=== PATIENT | female | born 1990 | race Asian ===

== ENCOUNTER 2021-12-26 21:31 | Inpatient (IN) | payer MEDICAID, OTHER ==
[~2021-12-26] VITALS: Ht 144.8 cm; Wt 81.6 kg
[~2021-12-26 21:31] MED LIST: CLON1TAB12 PO; RISP1TAB48 PO; RISP1TAB98 PO; RISP2TAB45 PO; SERT50TA PO
[2021-12-26] MEDS ORDERED: CARI4.5C PO (22:24)
[2021-12-26] MEDS ORDERED: LORA10TA7 PO (22:24)
[2021-12-26] MEDS ORDERED: FENO54TA7 PO (22:24)
[2021-12-26] MEDS ORDERED: ALBU8.5H8 IH (22:24)
[2021-12-26] MEDS ORDERED: BENZ1TAB96 PO (22:24)
[2021-12-26] MEDS ORDERED: CETI-450 PO (22:24)
[2021-12-26] MEDS ORDERED: CHOL25TA4 PO (22:24)
[2021-12-26] MEDS ORDERED: LORazepam 2 MG/ML VIAL IM ONE (22:30)
[2021-12-26] MEDS ORDERED: HALOPERIDOL LACTATE 5 MG/ML VIAL IM ONE (22:30)
[2021-12-26] MEDS ORDERED: DiphenhydrAMINE HCL 50 MG/ML VIAL IM ONE (22:30)
[2021-12-26] MEDS ORDERED: HALOPERIDOL LACTATE 5 MG/ML VIAL ONE (22:31)
[2021-12-26] MEDS ORDERED: DiphenhydrAMINE HCL 50 MG/ML VIAL ONE (22:31)
[2021-12-26] MEDS ORDERED: LORazepam 2 MG/ML VIAL ONE (22:31)
[2021-12-26 23:08] LABS: BASOPHILS % (AUTO) 0.4 % (0.0-2.0); EOSINOPHILS % (AUTO) 0.4 % (1.0-6.0); HEMATOCRIT 42.4 % (36-46); HEMOGLOBIN 13.7 g/dL (12.0-16.0); LYMPHOCYTES # (AUTO) 1.1 K/uL (1.0-4.8); LYMPHOCYTES % (AUTO) 4.9 % (22.0-44.0); MEAN CORPUSCULAR HEMOGLOBIN 28.7 pg (26.0-34.0); MEAN CORPUSCULAR HGB CONC 32.2 G/dL (31.0-37.0); MEAN CORPUSCULAR VOLUME 89 fL (80-100); MONOCYTES # (AUTO) 1.2 K/uL (0.1-1.0); MONOCYTES % (AUTO) 5.4 % (2.0-9.0); NEUTROPHILS # (AUTO) 20.2 K/uL (1.8-7.7); NEUTROPHILS % (AUTO) 88.9 % (40.0-70.0); PLATELET COUNT (AUTO) 536 K/uL (150-450); RED BLOOD CELL COUNT(AUTO) 4.76 MIL/uL (4.00-5.20); RED CELL DISTRIBUTION WIDTH 13.7 % (11.5-14.5)
[2021-12-26 23:29] LABS: ALANINE AMINOTRANSFERASE 25 U/L (12-78); ALKALINE PHOSPHATASE 112 U/L (46-116); ANION GAP 29 mmol/L (8-16); ASPARTATE AMINOTRANSFERASE 22 U/L (15-37); BILIRUBIN,TOTAL 0.2 mg/dL (0.1-1.0); CALCIUM, TOTAL 9.2 mg/dL (8.8-10.5); CARBON DIOXIDE 10 mmol/L (22-29); CHLORIDE 103 mmol/L (98-107); GLOMERULAR FILTR. RATE CALC 33 mL/min (>60); GLUCOSE,RANDOM 279 mg/dL (70-110); HCG,QUANTITATIVE < 1 mIU/mL (0-6); POTASSIUM 3.6 mmol/L (3.5-5.1); SODIUM SERUM 142 mmol/L (136-145); TOTAL PROTEIN, SERUM 8.2 g/dL (6.4-8.2); UREA NITROGEN, BLOOD 9 mg/dL (7-18)
[2021-12-26 23:48] LABS: COVID AG,FIA SOURCE NASAL SWAB
[2021-12-27] MEDS ORDERED: LORazepam 2 MG TABLET PO PRN (00:15)
[2021-12-27] MEDS ORDERED: HALOPERIDOL 5 MG TABLET PO PRN (00:15)
[2021-12-27] MEDS ORDERED: ZOLPIDEM TARTRATE 10 MG TABLET PO PRN (00:15)
[2021-12-27 03:06] VITALS: BP 113/72
[2021-12-27] MEDS ORDERED: ALBUTEROL SULFATE HFA 90 MCG/PUFF 8 GM INHALER IH PRN (06:45)
[2021-12-27] MEDS ORDERED: GuaiFENesin/D-METHORPHAN [SUGAR-FREE] 200-20MG/10 ML SYRUP UDCUP PO PRN (06:45)
[2021-12-27] MEDS ORDERED: DOCUSATE SODIUM 100 MG CAPSULE PO PRN (06:45)
[2021-12-27] MEDS ORDERED: LOPERAMIDE HCL 2 MG CAPSULE PO PRN (06:45)
[2021-12-27] MEDS ORDERED: MAG HYDROX/AL HYDROX/SIMETH ES 30 ML SUSPENSION UDCUP PO PRN (06:45)
[2021-12-27] MEDS ORDERED: CloNIDine HCL 0.1 MG TABLET PO PRN (06:45)
[2021-12-27] MEDS ORDERED: ONDANSETRON HCL 4 MG TABLET PO PRN (06:45)
[2021-12-27] MEDS ORDERED: IBUPROFEN 400 MG TABLET PO PRN (06:45)
[2021-12-27] MEDS ORDERED: PETROLATUM,WHITE 28 GM JELLY TP PRN (06:45)
[2021-12-27] MEDS ORDERED: MAGNESIUM HYDROXIDE SUSPENSION 30 ML UDCUP PO PRN (06:45)
[2021-12-27] MEDS ORDERED: NICOTINE 14 MG/24 HOUR PATCH TD PRN (06:45)
[2021-12-27] MEDS ORDERED: ACETAMINOPHEN 325 MG TABLET PO PRN (06:45)
[2021-12-27 08:12] VITALS: BP 122/74
[2021-12-27] MEDS: CHOLECALCIFEROL (VIT D3) 1,000 UNITS [25 MCG] TABLET PO SCH ×2 (08:20→16:50)
[2021-12-27] MEDS ORDERED: SERT-440 PO (09:17)
[2021-12-27] MEDS: PALIPERIDONE 1.5 MG ER TABLET PO SCH (09:50)
[2021-12-27] MEDS: SERTRALINE HCL 100 MG TABLET PO SCH (09:50)
[2021-12-27] MEDS: BENZTROPINE MESYLATE 1 MG TABLET PO SCH ×2 (09:50→16:50)
[2021-12-27] MEDS: FENOFIBRATE 54 MG TABLET PO SCH (13:21)
[2021-12-27 13:35] LABS: APPEARANCE,URINE TURBID (CLEAR); BILIRUBIN,URINE NEGATIVE (NEGATIVE); GLUCOSE, URINE (UA) TRACE mg/dL (NEGATIVE); KETONES,URINE NEGATIVE (NEGATIVE); LEUKOCYTE ESTERASE ,URINE TRACE (NEGATIVE); NITRATE,URINE NEGATIVE (NEGATIVE); OCCULT BLOOD,URINE TRACE (NEGATIVE); PROTEIN,URINE TRACE mg/dL (NEGATIVE); SPECIFIC GRAVITIY, URINE 1.013 (1.003-1.030); UROBILINOGEN,URINE <=1.0 mg/dL (<=1.0)
[2021-12-27 13:43] LABS: AMPHET/METH SCREEN,URINE NEGATIVE (NEGATIVE); BARBITURATE SCREEN, URINE NEGATIVE (NEGATIVE); BENZODIAZEPINES SCREEN,URINE NEGATIVE (NEGATIVE); CANNABINOID SCREEN,URINE NEGATIVE (NEGATIVE); COCAINE SCREEN,URINE NEGATIVE (NEGATIVE); METHADONE SCREEN, URINE NEGATIVE (NEGATIVE); OPIATE SCREEN,URINE NEGATIVE (NEGATIVE)
[2021-12-27 13:44] LABS: PHENCYCLIDINE SCREEN,URINE NEGATIVE (NEGATIVE)
[2021-12-27 16:15] VITALS: BP 103/65
[2021-12-27 18:01] LABS: RBC,URINE 0-2 /HPF (0-2)
[2021-12-27 18:02] LABS: BACTERIA,URINE Few /HPF (None Seen)
[2021-12-27] MEDS: CETIRIZINE HCL 10 MG TABLET PO SCH (20:10)
[2021-12-28 01:06] VITALS: BP 100/66
[2021-12-28 07:15] LABS: BASOPHILS % (AUTO) 0.6 % (0.0-2.0); EOSINOPHILS % (AUTO) 1.9 % (1.0-6.0); HEMATOCRIT 36.9 % (36-46); HEMOGLOBIN 12.5 g/dL (12.0-16.0); LYMPHOCYTES # (AUTO) 1.5 K/uL (1.0-4.8); LYMPHOCYTES % (AUTO) 14.3 % (22.0-44.0); MEAN CORPUSCULAR HEMOGLOBIN 29.3 pg (26.0-34.0); MEAN CORPUSCULAR HGB CONC 33.8 G/dL (31.0-37.0); MEAN CORPUSCULAR VOLUME 87 fL (80-100); MONOCYTES % (AUTO) 9.8 % (2.0-9.0); NEUTROPHILS # (AUTO) 7.8 K/uL (1.8-7.7); NEUTROPHILS % (AUTO) 73.4 % (40.0-70.0); PLATELET COUNT (AUTO) 389 K/uL (150-450); RED BLOOD CELL COUNT(AUTO) 4.25 MIL/uL (4.00-5.20); RED CELL DISTRIBUTION WIDTH 13.5 % (11.5-14.5)
[2021-12-28 07:50] LABS: ANION GAP 9 mmol/L (8-16); CALCIUM, TOTAL 9.1 mg/dL (8.8-10.5); CARBON DIOXIDE 27 mmol/L (22-29); CHLORIDE 106 mmol/L (98-107); CHOL/HDL RATIO 3.8 (3.9-5.7); CHOLESTEROL 147 mg/dL (131-200); CREATININE 0.83 mg/dL (0.60-1.30); FREE T4 (FREE THYROXINE) 1.07 ng/dL (0.76-1.46); GLOMERULAR FILTR. RATE CALC > 60 mL/min (>60); GLUCOSE,RANDOM 107 mg/dL (70-110); HDL CHOLESTEROL 39 mg/dL (40-60); LDL CHOL (CALC.) 84 mg/dL (0-130); POTASSIUM 3.6 mmol/L (3.5-5.1); SODIUM SERUM 142 mmol/L (136-145); THYROID STIMULATING HORMONE 0.55 uIU/mL (0.36-3.74); TRIGLYCERIDES 122 mg/dL (15-150); UREA NITROGEN, BLOOD 15 mg/dL (7-18)
[2021-12-28 08:01] VITALS: BP 108/74
[2021-12-28] MEDS: BENZTROPINE MESYLATE 1 MG TABLET PO SCH ×2 (08:16→16:59)
[2021-12-28] MEDS: SERTRALINE HCL 100 MG TABLET PO SCH (08:16)
[2021-12-28] MEDS: FENOFIBRATE 54 MG TABLET PO SCH (08:16)
[2021-12-28] MEDS: PALIPERIDONE 1.5 MG ER TABLET PO SCH (08:17)
[2021-12-28] MEDS: CHOLECALCIFEROL (VIT D3) 1,000 UNITS [25 MCG] TABLET PO SCH ×2 (08:22→16:59)
[2021-12-28 16:37] VITALS: BP 103/60
[2021-12-28] MEDS: CETIRIZINE HCL 10 MG TABLET PO SCH (20:02)
[2021-12-29 01:10] VITALS: BP 106/72
[2021-12-29 08:04] VITALS: BP 112/69
[2021-12-29] MEDS: PALIPERIDONE 1.5 MG ER TABLET PO SCH (08:14)
[2021-12-29] MEDS: FENOFIBRATE 54 MG TABLET PO SCH (08:14)
[2021-12-29] MEDS: CHOLECALCIFEROL (VIT D3) 1,000 UNITS [25 MCG] TABLET PO SCH ×2 (08:14→16:09)
[2021-12-29] MEDS: BENZTROPINE MESYLATE 1 MG TABLET PO SCH ×2 (08:14→16:09)
[2021-12-29] MEDS: SERTRALINE HCL 100 MG TABLET PO SCH (08:14)
[2021-12-29 16:12] VITALS: BP 113/70
[2021-12-29] MEDS: CETIRIZINE HCL 10 MG TABLET PO SCH (20:17)
[2021-12-30 05:47] VITALS: BP 104/60
[2021-12-30] MEDS ORDERED: SERT-440 PO (06:42)
[2021-12-30] MEDS ORDERED: CHOL25TA4 PO (06:42)
[2021-12-30] MEDS ORDERED: CARI4.5C PO (06:42)
[2021-12-30] MEDS ORDERED: BENZ1TAB96 PO (06:42)
[2021-12-30] MEDS ORDERED: FENO54TA7 PO (06:42)
[2021-12-30] MEDS ORDERED: CETI-450 PO (06:42)
[2021-12-30] MEDS: FENOFIBRATE 54 MG TABLET PO SCH (07:56)
[2021-12-30] MEDS: PALIPERIDONE 1.5 MG ER TABLET PO SCH (07:56)
[2021-12-30] MEDS: SERTRALINE HCL 100 MG TABLET PO SCH (07:56)
[2021-12-30] MEDS: CHOLECALCIFEROL (VIT D3) 1,000 UNITS [25 MCG] TABLET PO SCH (07:57)
[2021-12-30] MEDS: BENZTROPINE MESYLATE 1 MG TABLET PO SCH (07:57)
[2021-12-30 08:10] VITALS: BP 100/62
== END 2021-12-30 10:45 | disposition home or self-care (01) | DRG 750 ==
LOC: EMS 21:35 → B3A 12-27 00:14
PROVIDERS: ADMIT Psychiatry & Neurology Psychiatry; ATTEND Psychiatry & Neurology Psychiatry
DX: F25.0 Schizoaffective disorder, bipolar type (principal); N17.9 Acute kidney failure, unspecified; F79 Unspecified intellectual disabilities; D72.829 Elevated white blood cell count, unspecified; D75.839 Thrombocytosis, unspecified; J44.9 Chronic obstructive pulmonary disease, unspecified; Z20.822 Contact with and (suspected) exposure to COVID-19
CPT/HCPCS: 80048; 80053; 80061; 81001; 84439; 84443; 84702; 85025; 87081; 99285; G0480; J1200; J1630; J2060

== ENCOUNTER 2023-07-04 10:11 | Inpatient (IN) | payer MEDICAID, OTHER ==
[~2023-07-04] VITALS: Ht 144.8 cm; Wt 59.0 kg
[~2023-07-04 10:11] MED LIST changes: +ALBU8.5H8 IH; +BENZ1TAB84 PO; +CARI4.5C PO; +CETI-450 PO; +CHOL25TA4 PO; -CLON1TAB12 PO; +FENO54TA7 PO; -RISP1TAB48 PO; -RISP1TAB98 PO; -RISP2TAB45 PO; +SERT-440 PO; -SERT50TA PO
[2023-07-04] MEDS ORDERED: DiphenhydrAMINE HCL 50 MG/ML VIAL ONE (10:27)
[2023-07-04] MEDS ORDERED: HALOPERIDOL LACTATE 5 MG/ML VIAL ONE (10:27)
[2023-07-04] MEDS ORDERED: LORazepam 2 MG/ML VIAL ONE (10:27)
[2023-07-04] MEDS ORDERED: DiphenhydrAMINE HCL 50 MG/ML VIAL IM ONE (10:30)
[2023-07-04] MEDS ORDERED: LORazepam 2 MG/ML VIAL IM ONE (10:30)
[2023-07-04] MEDS ORDERED: HALOPERIDOL LACTATE 5 MG/ML VIAL IM ONE (10:30)
[2023-07-04] MEDS ORDERED: CHOL25TA4 PO (10:59)
[2023-07-04] MEDS ORDERED: PIME30CR6 TP (10:59)
[2023-07-04] MEDS ORDERED: BECL10.6 IH (10:59)
[2023-07-04] MEDS ORDERED: MONT-40 PO (10:59)
[2023-07-04] MEDS ORDERED: TRIA15CR49 TP (10:59)
[2023-07-04] MEDS ORDERED: ALBU18HF12 IH (10:59)
[2023-07-04] MEDS ORDERED: TRAL150S SQ (10:59)
[2023-07-04 11:56] LABS: BASOPHILS % (AUTO) 0.3 % (0.0-2.0); EOSINOPHILS % (AUTO) 0 % (1.0-6.0); HEMATOCRIT 36.9 % (36-46); HEMOGLOBIN 12.4 g/dL (12.0-16.0); LYMPHOCYTES # (AUTO) 0.7 K/uL (1.0-4.8); LYMPHOCYTES % (AUTO) 4.7 % (22.0-44.0); MEAN CORPUSCULAR HEMOGLOBIN 29.3 pg (26.0-34.0); MEAN CORPUSCULAR HGB CONC 33.6 G/dL (31.0-37.0); MEAN CORPUSCULAR VOLUME 87 fL (80-100); MONOCYTES # (AUTO) 0.8 K/uL (0.1-1.0); MONOCYTES % (AUTO) 5.3 % (2.0-9.0); NEUTROPHILS # (AUTO) 12.8 K/uL (1.8-7.7); PLATELET COUNT (AUTO) 509 K/uL (150-450); RED BLOOD CELL COUNT(AUTO) 4.23 MIL/uL (4.00-5.20); RED CELL DISTRIBUTION WIDTH 13.3 % (11.5-14.5); WHITE BLOOD COUNT (AUTO) 14.3 K/uL (4.5-11.0)
[2023-07-04 11:58] LABS: NEUTROPHILS % (AUTO) 89.7 % (40.0-70.0)
[2023-07-04 12:04] LABS: ANION GAP 17 mmol/L (8-16); CALCIUM, TOTAL 9.1 mg/dL (8.8-10.5); CARBON DIOXIDE 18 mmol/L (22-29); CHLORIDE 103 mmol/L (98-107); CREATININE 1.35 mg/dL (0.60-1.30); GLOMERULAR FILTR. RATE CALC 45 mL/min (>60); GLUCOSE,RANDOM 206 mg/dL (70-110); POTASSIUM 3.7 mmol/L (3.5-5.1); SODIUM SERUM 138 mmol/L (136-145); UREA NITROGEN, BLOOD 14 mg/dL (7-18)
[2023-07-04 12:11] LABS: ALANINE AMINOTRANSFERASE 24 U/L (12-78); ALBUMIN 3.5 g/dL (3.4-5.0); ALKALINE PHOSPHATASE 104 U/L (46-116); ASPARTATE AMINOTRANSFERASE 27 U/L (15-37); BILIRUBIN,TOTAL 0.2 mg/dL (0.1-1.0); TOTAL PROTEIN, SERUM 8.4 g/dL (6.4-8.2)
[2023-07-04 12:12] LABS: ALCOHOL, BLOOD (SERUM) < 3 mg/dL (0-10)
[2023-07-04 13:38] LABS: COVID AG,FIA SOURCE NASAL SWAB
[2023-07-04 14:01] LABS: SARS-COV2 (COVID) ANTIGEN,FIA Negative (Negative)
[2023-07-04 14:12] LABS: ALCOHOL, URINE DRUG SCREEN NEGATIVE (NEGATIVE); AMPHET/METH SCREEN,URINE NEGATIVE (NEGATIVE); BARBITURATE SCREEN, URINE NEGATIVE (NEGATIVE); BENZODIAZEPINES SCREEN,URINE NEGATIVE (NEGATIVE); CANNABINOID SCREEN,URINE NEGATIVE (NEGATIVE); COCAINE SCREEN,URINE NEGATIVE (NEGATIVE); METHADONE SCREEN, URINE NEGATIVE (NEGATIVE); OPIATE SCREEN,URINE NEGATIVE (NEGATIVE); PHENCYCLIDINE SCREEN,URINE NEGATIVE (NEGATIVE)
[2023-07-04] MEDS: LORazepam 2 MG TABLET PO PRN (21:38)
[2023-07-04] MEDS: ZOLPIDEM TARTRATE 10 MG TABLET PO PRN (22:19)
[2023-07-04 23:09] VITALS: BP 116/77; PULSE 84; RESP 17; TEMP 97.1
[2023-07-04 23:14] VITALS: BP 116/77; PULSE 84; RESP 17; TEMP 97.1; O2SAT 97
[2023-07-05] MEDS ORDERED: PNEUMOCOCCAL VACCINE POLYVALENT 0.5 ML SYRINGE [PPSV23] IM. ONE (02:45)
[2023-07-05] MEDS: LORazepam 2 MG TABLET PO PRN (08:22)
[2023-07-05] MEDS: HALOPERIDOL 5 MG TABLET PO PRN (08:22)
[2023-07-05 08:30] VITALS: BP 106/63; PULSE 74; RESP 18; TEMP 98.4; O2SAT 96
[2023-07-05] MEDS: SERTRALINE HCL 100 MG TABLET PO SCH (13:29)
[2023-07-05] MEDS ORDERED: ACETAMINOPHEN 325 MG TABLET PO PRN (14:00)
[2023-07-05] MEDS ORDERED: NICOTINE 14 MG/24 HOUR PATCH TD PRN (14:00)
[2023-07-05] MEDS ORDERED: MAGNESIUM HYDROXIDE SUSPENSION 30 ML UDCUP PO PRN (14:00)
[2023-07-05] MEDS ORDERED: IBUPROFEN 400 MG TABLET PO PRN (14:00)
[2023-07-05] MEDS ORDERED: CloNIDine HCL 0.1 MG TABLET PO PRN (14:00)
[2023-07-05] MEDS ORDERED: MAG HYDROX/ALUMINUM HYD/SIMETH ES 30 ML SUSPENSION UDCUP PO PRN (14:00)
[2023-07-05] MEDS ORDERED: LOPERAMIDE HCL 2 MG CAPSULE PO PRN (14:00)
[2023-07-05] MEDS ORDERED: ALBUTEROL SULFATE HFA 90 MCG/PUFF 8 GM INHALER IH PRN (14:00)
[2023-07-05] MEDS ORDERED: PETROLATUM,WHITE 28 GM JELLY TP PRN (14:00)
[2023-07-05] MEDS ORDERED: DOCUSATE SODIUM 100 MG CAPSULE PO PRN (14:00)
[2023-07-05] MEDS ORDERED: GuaiFENesin/D-METHORPHAN [SUGAR-FREE] 200-20MG/10 ML SYRUP UDCUP PO PRN (14:00)
[2023-07-05] MEDS ORDERED: ONDANSETRON HCL 4 MG TABLET PO PRN (14:00)
[2023-07-05] MEDS: RisperiDONE 1 MG TABLET PO SCH (17:04)
[2023-07-05] MEDS: BENZTROPINE MESYLATE 1 MG TABLET PO SCH (17:04)
[2023-07-05 20:03] VITALS: BP 101/61; PULSE 78; RESP 17; TEMP 97.7
[2023-07-05] MEDS: MONTELUKAST SODIUM 10 MG TABLET PO SCH (20:10)
[2023-07-05] MEDS: CETIRIZINE HCL 10 MG TABLET PO SCH (20:11)
[2023-07-06] MEDS: RisperiDONE 1 MG TABLET PO SCH ×2 (08:43→16:08)
[2023-07-06] MEDS: FENOFIBRATE 54 MG TABLET PO SCH (08:43)
[2023-07-06] MEDS: CHOLECALCIFEROL (VIT D3) 1,000 UNITS [25 MCG] TABLET PO SCH (08:43)
[2023-07-06] MEDS: BENZTROPINE MESYLATE 1 MG TABLET PO SCH ×2 (08:43→16:08)
[2023-07-06] MEDS: LORazepam 2 MG TABLET PO PRN (08:43)
[2023-07-06] MEDS: HALOPERIDOL 5 MG TABLET PO PRN (08:43)
[2023-07-06] MEDS: SERTRALINE HCL 100 MG TABLET PO SCH (08:43)
[2023-07-06 09:42] VITALS: BP 102/70; PULSE 87; RESP 17; TEMP 97.3; O2SAT 98
[2023-07-06] MEDS ORDERED: HYDROCORTISONE 1% 30 GM OINTMENT TP PRN (16:45)
[2023-07-06] MEDS: MONTELUKAST SODIUM 10 MG TABLET PO SCH (20:16)
[2023-07-06] MEDS: CETIRIZINE HCL 10 MG TABLET PO SCH (20:16)
[2023-07-06 23:29] VITALS: BP 110/65; PULSE 68; RESP 18; TEMP 97.7; O2SAT 97
[2023-07-07 06:02] LABS: CHOL/HDL RATIO 4.3 (3.9-5.7)
[2023-07-07] MEDS: LORazepam 2 MG TABLET PO PRN (07:58)
[2023-07-07] MEDS: HALOPERIDOL 5 MG TABLET PO PRN (07:58)
[2023-07-07] MEDS: CHOLECALCIFEROL (VIT D3) 1,000 UNITS [25 MCG] TABLET PO SCH (08:05)
[2023-07-07] MEDS: SERTRALINE HCL 100 MG TABLET PO SCH (08:05)
[2023-07-07] MEDS: RisperiDONE 1 MG TABLET PO SCH ×2 (08:05→16:03)
[2023-07-07] MEDS: BENZTROPINE MESYLATE 1 MG TABLET PO SCH ×2 (08:05→16:03)
[2023-07-07] MEDS: FENOFIBRATE 54 MG TABLET PO SCH (08:05)
[2023-07-07 09:00] VITALS: BP 108/68; PULSE 89; RESP 18; TEMP 98.1; O2SAT 99
[2023-07-07] MEDS: MONTELUKAST SODIUM 10 MG TABLET PO SCH (20:00)
[2023-07-07] MEDS: ZOLPIDEM TARTRATE 10 MG TABLET PO PRN (20:00)
[2023-07-07] MEDS: CETIRIZINE HCL 10 MG TABLET PO SCH (20:00)
[2023-07-07 21:17] VITALS: BP 99/60; PULSE 60; RESP 17; TEMP 97.5; O2SAT 99
[2023-07-08 08:39] VITALS: BP 106/62; PULSE 77; RESP 16; TEMP 98.2; O2SAT 97
[2023-07-08] MEDS: RisperiDONE 1 MG TABLET PO SCH ×2 (08:47→16:06)
[2023-07-08] MEDS: LORazepam 2 MG TABLET PO PRN (08:47)
[2023-07-08] MEDS: BENZTROPINE MESYLATE 1 MG TABLET PO SCH ×2 (08:47→16:06)
[2023-07-08] MEDS: SERTRALINE HCL 100 MG TABLET PO SCH (08:47)
[2023-07-08] MEDS: CHOLECALCIFEROL (VIT D3) 1,000 UNITS [25 MCG] TABLET PO SCH (08:47)
[2023-07-08] MEDS: FENOFIBRATE 54 MG TABLET PO SCH (08:51)
[2023-07-08] MEDS: MONTELUKAST SODIUM 10 MG TABLET PO SCH (20:14)
[2023-07-08] MEDS: CETIRIZINE HCL 10 MG TABLET PO SCH (20:14)
[2023-07-08] MEDS: ZOLPIDEM TARTRATE 10 MG TABLET PO PRN (20:14)
[2023-07-08 21:00] VITALS: RESP 18
[2023-07-09 03:52] VITALS: BP 102/68; PULSE 80; RESP 18; TEMP 97.5; O2SAT 98
[2023-07-09 08:38] VITALS: BP 101/65; PULSE 78; RESP 16; TEMP 97.8; O2SAT 97
[2023-07-09] MEDS: BENZTROPINE MESYLATE 1 MG TABLET PO SCH ×2 (08:45→16:54)
[2023-07-09] MEDS: CHOLECALCIFEROL (VIT D3) 1,000 UNITS [25 MCG] TABLET PO SCH (08:45)
[2023-07-09] MEDS: SERTRALINE HCL 100 MG TABLET PO SCH (08:45)
[2023-07-09] MEDS: FENOFIBRATE 54 MG TABLET PO SCH (08:45)
[2023-07-09] MEDS: RisperiDONE 1 MG TABLET PO SCH ×2 (08:45→16:54)
[2023-07-09] MEDS: MONTELUKAST SODIUM 10 MG TABLET PO SCH (21:27)
[2023-07-09] MEDS: CETIRIZINE HCL 10 MG TABLET PO SCH (21:27)
[2023-07-10 04:19] VITALS: RESP 18
[2023-07-10] MEDS: RisperiDONE 1 MG TABLET PO SCH ×2 (08:03→16:16)
[2023-07-10] MEDS: BENZTROPINE MESYLATE 1 MG TABLET PO SCH ×2 (08:03→16:16)
[2023-07-10] MEDS: SERTRALINE HCL 100 MG TABLET PO SCH (08:03)
[2023-07-10] MEDS: CHOLECALCIFEROL (VIT D3) 1,000 UNITS [25 MCG] TABLET PO SCH (08:04)
[2023-07-10] MEDS: FENOFIBRATE 54 MG TABLET PO SCH (08:04)
[2023-07-10 08:29] VITALS: BP 100/62; PULSE 69; RESP 16; TEMP 97.6; O2SAT 98
[2023-07-10] MEDS ORDERED: BENZ1TAB84 PO (14:42)
[2023-07-10] MEDS ORDERED: RISP1TAB98 PO (14:42)
[2023-07-10] MEDS ORDERED: SERT-440 PO (14:42)
[2023-07-10] MEDS ORDERED: FENO54TA7 PO (18:29)
[2023-07-10] MEDS ORDERED: CETI-89 PO ×2 (18:32→18:33)
== END 2023-07-10 19:33 | disposition home or self-care (01) | DRG 750 ==
LOC: EMS 10:11 → B3A 17:18
PROVIDERS: ADMIT Psychiatry & Neurology Child & Adolescent Psychiatry; ATTEND Psychiatry & Neurology Child & Adolescent Psychiatry
DX: F25.0 Schizoaffective disorder, bipolar type (principal); N17.9 Acute kidney failure, unspecified; Z20.822 Contact with and (suspected) exposure to COVID-19; J45.909 Unspecified asthma, uncomplicated; E78.5 Hyperlipidemia, unspecified; R73.9 Hyperglycemia, unspecified; D72.829 Elevated white blood cell count, unspecified; L30.9 Dermatitis, unspecified
CPT/HCPCS: 80053; 80061; 80307; 83036; 84443; 85025; 99285; G0480; J1200; J1630; J2060

== ENCOUNTER 2024-01-23 07:42 | Inpatient (IN) | payer MEDICAID ==
[~2024-01-23] VITALS: Ht 152.4 cm; Wt 66.9 kg
[~2024-01-23 07:42] MED LIST changes: -ALBU8.5H8 IH; +BENZ-247 PO; -BENZ1TAB84 PO; -CARI4.5C PO; -CETI-450 PO; +CETI-89 PO; -CHOL25TA4 PO; +MONT-40 PO; +RISP-31 PO
[2024-01-23] MEDS: LORazepam 2 MG/ML VIAL IM ONE (08:05)
[2024-01-23] MEDS: HALOPERIDOL LACTATE 5 MG/ML VIAL IM ONE (08:05)
[2024-01-23] MEDS: DiphenhydrAMINE HCL 50 MG/ML VIAL IM ONE (08:06)
[2024-01-23 09:07] LABS: BASOPHILS % (AUTO) 0.4 % (0.0-2.0); EOSINOPHILS % (AUTO) 0.4 % (1.0-6.0); HEMATOCRIT 39.7 % (36-46); HEMOGLOBIN 13.2 g/dL (12.0-16.0); LYMPHOCYTES # (AUTO) 0.8 K/uL (1.0-4.8); LYMPHOCYTES % (AUTO) 5.1 % (22.0-44.0); MEAN CORPUSCULAR HGB CONC 33.3 G/dL (31.0-37.0); MEAN CORPUSCULAR VOLUME 87 fL (80-100); MONOCYTES # (AUTO) 0.9 K/uL (0.1-1.0); MONOCYTES % (AUTO) 6.1 % (2.0-9.0); NEUTROPHILS # (AUTO) 13.4 K/uL (1.8-7.7); PLATELET COUNT (AUTO) 407 K/uL (150-450); RED BLOOD CELL COUNT(AUTO) 4.57 MIL/uL (4.00-5.20); RED CELL DISTRIBUTION WIDTH 13.1 % (11.5-14.5); WHITE BLOOD COUNT (AUTO) 15.2 K/uL (4.5-11.0)
[2024-01-23 09:15] LABS: COVID AG,FIA SOURCE NPH
[2024-01-23 09:27] LABS: ANION GAP 9 mmol/L (8-16); CALCIUM, TOTAL 8.9 mg/dL (8.8-10.5); CARBON DIOXIDE 26 mmol/L (22-29); CHLORIDE 102 mmol/L (98-107); CREATININE 0.95 mg/dL (0.60-1.30); GLOMERULAR FILTR. RATE CALC > 60 mL/min (>60); GLUCOSE,RANDOM 148 mg/dL (70-110); POTASSIUM 3.6 mmol/L (3.5-5.1); SODIUM SERUM 137 mmol/L (136-145); UREA NITROGEN, BLOOD 13 mg/dL (7-18)
[2024-01-23 09:29] LABS: ALCOHOL, BLOOD (SERUM) < 3 mg/dL (0-10)
[2024-01-23 09:38] LABS: HCG,QUANTITATIVE < 1 mIU/mL (0-6)
[2024-01-23] MEDS ORDERED: ZOLPIDEM TARTRATE 10 MG TABLET PO PRN (10:00)
[2024-01-23 10:05] LABS: SARS-COV2 (COVID) ANTIGEN,FIA Negative (Negative)
[2024-01-23 19:23] LABS: APPEARANCE,URINE CLEAR (CLEAR); BILIRUBIN,URINE NEGATIVE (NEGATIVE); COLOR,URINE YELLOW (YELLOW); GLUCOSE, URINE (UA) 150-200 mg/dL (NEGATIVE); KETONES,URINE NEGATIVE (NEGATIVE); LEUKOCYTE ESTERASE ,URINE TRACE (NEGATIVE); NITRATE,URINE NEGATIVE (NEGATIVE); OCCULT BLOOD,URINE MODERATE (NEGATIVE); PH,URINE 6.5 (5.0-8.0); PH,URINE DRUG SCREEN 6.5 (5.0-8.0); PROTEIN,URINE 30-70 mg/dL (NEGATIVE); SPECIFIC GRAVITIY, URINE 1.031 (1.003-1.030); UROBILINOGEN,URINE <=1.0 mg/dL (<=1.0)
[2024-01-23 19:30] LABS: ALCOHOL, URINE DRUG SCREEN NEGATIVE (NEGATIVE); AMPHET/METH SCREEN,URINE NEGATIVE (NEGATIVE); BARBITURATE SCREEN, URINE NEGATIVE (NEGATIVE); BENZODIAZEPINES SCREEN,URINE POSITIVE (NEGATIVE); CANNABINOID SCREEN,URINE NEGATIVE (NEGATIVE); COCAINE SCREEN,URINE NEGATIVE (NEGATIVE); METHADONE SCREEN, URINE NEGATIVE (NEGATIVE); OPIATE SCREEN,URINE NEGATIVE (NEGATIVE); PHENCYCLIDINE SCREEN,URINE NEGATIVE (NEGATIVE)
[2024-01-23 19:35] LABS: BACTERIA,URINE Few /HPF (None Seen); SQUAMOUS EPITHELIAL CELL,UR Moderate /LPF (None Seen)
[2024-01-23 22:08] VITALS: BP 118/90; PULSE 80; RESP 16; TEMP 97.9; O2SAT 98
[2024-01-23] MEDS ORDERED: ALBUTEROL SULFATE HFA 90 MCG/PUFF 8 GM INHALER IH PRN (22:45)
[2024-01-24 08:24] VITALS: BP 97/70; PULSE 77; RESP 16; TEMP 97.9; O2SAT 98
[2024-01-24 10:05] LABS: CHOL/HDL RATIO 4.3 (3.9-5.7); FREE T4 (FREE THYROXINE) 1.08 ng/dL (0.76-1.46); THYROID STIMULATING HORMONE 1.2 uIU/mL (0.36-3.74)
[2024-01-24] MEDS: SERTRALINE HCL 100 MG TABLET PO SCH (11:46)
[2024-01-24] MEDS ORDERED: ONDANSETRON HCL 4 MG TABLET PO PRN (15:00)
[2024-01-24] MEDS ORDERED: LOPERAMIDE HCL 2 MG CAPSULE PO PRN (15:00)
[2024-01-24] MEDS ORDERED: NICOTINE 14 MG/24 HOUR PATCH TD PRN (15:00)
[2024-01-24] MEDS ORDERED: MAGNESIUM HYDROXIDE SUSPENSION 30 ML UDCUP PO PRN (15:00)
[2024-01-24] MEDS ORDERED: PETROLATUM,WHITE 28 GM JELLY TP PRN (15:00)
[2024-01-24] MEDS ORDERED: MAG HYDROX/ALUMINUM HYD/SIMETH ES 30 ML SUSPENSION UDCUP PO PRN (15:00)
[2024-01-24] MEDS ORDERED: ACETAMINOPHEN 325 MG TABLET PO PRN (15:00)
[2024-01-24] MEDS ORDERED: DOCUSATE SODIUM 100 MG CAPSULE PO PRN (15:00)
[2024-01-24] MEDS ORDERED: CloNIDine HCL 0.1 MG TABLET PO PRN (15:00)
[2024-01-24] MEDS ORDERED: GuaiFENesin/D-METHORPHAN [SUGAR-FREE] 200-20MG/10 ML SYRUP UDCUP PO PRN (15:00)
[2024-01-24] MEDS ORDERED: IBUPROFEN 400 MG TABLET PO PRN (15:00)
[2024-01-24] MEDS ORDERED: ALBUTEROL SULFATE HFA 90 MCG/PUFF 8 GM INHALER IH PRN (15:00)
[2024-01-24] MEDS: RisperiDONE 1 MG TABLET PO SCH (16:10)
[2024-01-24] MEDS: BENZTROPINE MESYLATE 1 MG TABLET PO SCH (16:10)
[2024-01-24 20:00] VITALS: BP 116/79; PULSE 69; RESP 18; TEMP 97.1; O2SAT 100
[2024-01-24] MEDS: MONTELUKAST SODIUM 10 MG TABLET PO SCH (20:52)
[2024-01-24] MEDS: CETIRIZINE HCL 10 MG TABLET PO SCH (20:52)
[2024-01-25] MEDS: FENOFIBRATE 54 MG TABLET PO SCH (08:09)
[2024-01-25] MEDS: PIMECROLIMUS 1% 30 GM CREAM TP SCH (08:10)
[2024-01-25 08:45] LABS: HEMOGLOBIN A1C 6.1 % (3.8-5.6)
[2024-01-25 08:46] VITALS: BP 102/62; PULSE 65; RESP 17; TEMP 97.5; O2SAT 98
[2024-01-25 08:57] LABS: CHOL/HDL RATIO 4.4 (3.9-5.7); THYROID STIMULATING HORMONE 2.07 uIU/mL (0.36-3.74)
[2024-01-25 23:04] VITALS: BP 102/62; PULSE 66; RESP 17; TEMP 97.6; O2SAT 98
[2024-01-26 08:20] VITALS: BP 110/65; PULSE 68; RESP 15; TEMP 98.1; O2SAT 96
[2024-01-26 20:00] VITALS: BP 122/74; PULSE 76; RESP 17; TEMP 97.8; O2SAT 98
[2024-01-27 08:45] VITALS: BP 115/86; PULSE 80; RESP 20; TEMP 98; O2SAT 98
[2024-01-27 09:15] LABS: EOSINOPHILS % (AUTO) 0.5 % (1.0-6.0); HEMATOCRIT 41.2 % (36-46); HEMOGLOBIN 13.5 g/dL (12.0-16.0); LYMPHOCYTES # (AUTO) 0.9 K/uL (1.0-4.8); MONOCYTES # (AUTO) 0.6 K/uL (0.1-1.0); RED CELL DISTRIBUTION WIDTH 13.2 % (11.5-14.5)
[2024-01-27 09:17] LABS: BASOPHILS % (AUTO) 0.6 % (0.0-2.0); LYMPHOCYTES % (AUTO) 8.4 % (22.0-44.0); MEAN CORPUSCULAR HEMOGLOBIN 28.9 pg (26.0-34.0); MEAN CORPUSCULAR HGB CONC 32.8 G/dL (31.0-37.0); MEAN CORPUSCULAR VOLUME 88 fL (80-100); MONOCYTES % (AUTO) 5.1 % (2.0-9.0); NEUTROPHILS # (AUTO) 9.6 K/uL (1.8-7.7); PLATELET COUNT (AUTO) 427 K/uL (150-450); RED BLOOD CELL COUNT(AUTO) 4.67 MIL/uL (4.00-5.20); WHITE BLOOD COUNT (AUTO) 11.2 K/uL (4.5-11.0)
[2024-01-27 09:19] LABS: NEUTROPHILS % (AUTO) 85.4 % (40.0-70.0)
[2024-01-27] MEDS: LORazepam 2 MG TABLET PO PRN (12:59)
[2024-01-27] MEDS: HALOPERIDOL 5 MG TABLET PO PRN (12:59)
[2024-01-27 21:21] VITALS: BP 117/62; PULSE 89; RESP 18; TEMP 97; O2SAT 96
[2024-01-28 08:24] VITALS: BP 115/77; PULSE 83; RESP 18; TEMP 97.7; O2SAT 100
[2024-01-28 20:31] VITALS: BP 109/66; PULSE 76; RESP 18; TEMP 97.5; O2SAT 99
== END 2024-01-29 16:45 | disposition home or self-care (01) | DRG 750 ==
LOC: EMS 07:45 → EDBEDREQ 09:23 → B3A 17:03
PROVIDERS: ADMIT Psychiatry & Neurology Child & Adolescent Psychiatry; ATTEND Psychiatry & Neurology Child & Adolescent Psychiatry
PROC: GZHZZZZ Group Psychotherapy (ICD-10-PCS; principal; 2024-01-24)
PROC: GZ52ZZZ Individual Psychotherapy, Cognitive (ICD-10-PCS; 2024-01-24)
DX: F25.0 Schizoaffective disorder, bipolar type (principal); I95.9 Hypotension, unspecified; R45.851 Suicidal ideations; E78.5 Hyperlipidemia, unspecified; E87.6 Hypokalemia; J30.2 Other seasonal allergic rhinitis; F41.9 Anxiety disorder, unspecified; D72.829 Elevated white blood cell count, unspecified; Z20.822 Contact with and (suspected) exposure to COVID-19; D64.9 Anemia, unspecified; F12.90 Cannabis use, unspecified, uncomplicated; R73.9 Hyperglycemia, unspecified; Z78.1 Physical restraint status; Z79.899 Other long term (current) drug therapy
CPT/HCPCS: 80048; 80061; 80307; 81001; 83036; 84439; 84443; 84702; 85025; 99285; G0480; J1200; J1630; J2060